=== PATIENT | male | born 1935 | race Caucasian/White ===

== ENCOUNTER → 2016-12-26 | Outpatient (CLI) | payer OTHER, MEDICARE | LOC: BHFA 09:30 | PROVIDERS: ATTEND Internal Medicine Cardiovascular Disease | DX: R94.31 Abnormal electrocardiogram [ECG] [EKG] (principal); R06.02 Shortness of breath ==

== ENCOUNTER 2017-04-13 12:18 | Inpatient (IN) | payer OTHER, MEDICARE ==
--- NOTE | 2017-04-13 12:54 | CPEKG ---
Heart Rate: 61 RR Interval: 984 P-R Interval: 200 QRSD Interval: 140 QT Interval: 436 QTC Interval: 440 P [place]: 74 QRS [place]: -68 T Wave [place]: -35 EKG Severity - ABNORMAL ECG - EKG Impression: SINUS RHYTHM EKG Impression: RBBB AND LAFB Electronically Signed By: Suzie Camacho 13-Apr-2017 15:43:16
[2017-04-13] MEDS ORDERED: ASPIRIN 81 MG CHEWABLE TAB PO ONE (13:02)
--- NOTE | 2017-04-13 13:08 | EDPHY ---
H & P Stated Complaint: High BP, Irregular heart beats, SOB Source: Patient Exam Limitations: No limitations - Personal History Current Tetanus Diphtheria and Acellular Pertussis (TDAP): Yes Tetanus Vaccine Date: < 10 years - Medical/Surgical History Hx Asthma: No Hx Chronic Respiratory Disease: No Hx Diabetes: No Hx Cardiac Disease: No Hx Renal Disease: No Hx Cirrhosis: No Hx Alcoholism: No Hx HIV/AIDS: No Hx Splenectomy or Spleen Trauma: Yes Other PMH: enlarged spleen, hepatitis years ago, spinal stenosis, peripheral neuropathy, hypothyroidism, A-FLUTTER ABLATION - Social History Smoking Status: Former smoker Time Seen by Provider: 04/13/17 13:03 HPI/ROS: HPI: This is an 81-year-old male who presents with Chief Complaint: Palpitations Location: Heart Quality: Palpitations Duration: 1-3 weeks Signs and Symptoms: no chest pain, + nausea, no diaphoresis, + flushing, no cardiac awareness, + elevated blood pressure readings, no abdominal pain Timing: Sudden, intermittent Severity: [id number] Context: Patient complains of intermittent heart palpitations and heart racing 2-3 times per day over the last 1-3 weeks. He has also noted elevated blood pressures; SBP 170/115. No history of hypertension and not take any blood pressure medications. Does take baby aspirin daily. Has a history of atrial fib flutter; followed by Dr. Marshall, and had what appears to be cardiac ablation approximately 2-3 years ago. Had followed with Dr. Thibodeaux approximately 1 year ago and advised to have cardiac nuclear stress test outpatient but never followed up. Patient is a vegetarian; has avoided caffeine and chocolate in the last week or so without improvement. Today was riding his bicycle, noticed his heart rate to be quite elevated. When he returned home, noted a blood pressures and heart rate in the 120s with associated palpitations and now shortness of breath at rest and on exertion. No history of fevers/chills/cough/ wheezing/lower extremity edema. Notified close friend that he needed to come to the hospital for evaluation. Patient states that this is very atypical for him and she is very concerned. Modifying Factors: Aspirin Comment: ROS: see HPI Constitutional: No fever, no chills, no weight loss Eyes: No blurred vision Respiratory: No shortness of breath, no cough Cardiovascular: No chest pain Gastrointestinal: No nausea, no vomiting, no diarrhea Genitourinary: No dysuria Extremities: No myalgias Neurologic: No weakness, no numbness Skin: No rashes Hematologic: No bruising, no bleeding MEDICAL/SURGICAL/SOCIAL HISTORY: Medical history: enlarged spleen, hepatitis years ago, spinal stenosis, peripheral neuropathy, hypothyroidism, A-FLUTTER s/p ABLATION, hx SVT, retinal detachment Social history: vegetarian, retired physicist CONSTITUTIONAL: Elderly adult male, flushed cheeks noted, awake and alert, no obvious distress HEENT: Atraumatic and normocephalic, right eye abnormality noted-chronic; left PERRL, EOMI. Tympanic membranes clear. Oropharynx clear, no exudate and moist pink mucosa. Airway patent. No lymphadenopathy. No meningismus. Cardiovascular: Normal S1/S2, regular rate, irregular rhythm noted at times on telemetry, without murmur rub or gallop. PULMONARY/CHEST: Symmetrical and nontender. Clear to auscultation bilaterally. Good air movement. No accessory muscle usage. ABDOMEN: Soft, nondistended, nontender, no rebound, no guarding, no peritoneal signs, no masses or organomegaly. No CVAT. EXTREMITIES: 2/2 pulses, no deformities, no clubbing, no cyanosis or edema. NEUROLOGICAL: no focal neuro deficits. GCS 15. SKIN: Warm and dry, no erythema. no rash. Good capillary refill. (Ny Montez) Constitutional: Initial Vital Signs Temperature (C) 36.7 C 04/13/17 12:21 Heart Rate 64 04/13/17 12:21 Respiratory Rate 18 04/13/17 12:21 Blood Pressure 159/100 H 04/13/17 12:21 O2 Sat (%) 93 04/13/17 12:21 O2 Delivery Mode Room Air Allergies/Adverse Reactions: cephalexin Allergy (Verified 04/13/17 12:19) mercury Allergy (Uncoded 03/31/10 12:53) Home Medications: Medication Instructions Recorded Ascorbic Acid [Vitamin C 500 mg 1,000 mg PO DAILY 03/23/15 (*)] Herbals/Supplements -Info Only 1 ea PO DAILY 03/23/15 Levothyroxine [Synthroid 50 mcg 50 mcg PO DAILY06 03/23/15 (*)] Vitamin B Complex [B Complex] 1 each PO DAILY 03/23/15 Aspirin EC [Aspirin EC 81 mg (*)] 81 mg PO DAILY 04/13/17 Cholecalciferol Vit D3 [Vitamin D3 2,000 units PO DAILY 04/13/17 (*)] Medical Decision Making - Diagnostics EKG Interpretation: 12 lead EKG: Indication: palpitations Rhythm: Normal sinus rhythm, rate 61 bpm [place]: left CO: borderline RBBB QRS: Normal ST segments: Normal INTERPRETATION: PVCs The 12 lead EKG was interpreted by myself. (Ny Montez) Imaging Results: Imaging Impressions Chest X-Ray 04/13/17 13:02 Impression: 1. Underlying interstitial lung disease suspected with thickened markings around the lung periphery bilaterally. 2. No acute consolidation. ED Course/Re-evaluation: EKG, labs, oral medication, cardiac monitoring ECG shows NSR, no ischemic changes, PVCs, HR 50-90. PERC rule = 1; ddimer ordered 1400: Labs reviewed; grossly unremarkable including troponin, ddimer and proBNP ALVIN risk factors are intermediate. Discussed case with attending who agrees with admission. Reviewed EKG with attending. 1415: ED decision to consult for admission, spoke with Hospital Dr. Ctay Dorsey, who kindly agrees to admit patient and provide further care for cardiac ischemic workup and overnight monitoring for arrhythmias (Ny Montez) Differential Diagnosis: Chest pain including but not limited to myocardial ischemia, pulmonary embolus, chest wall pain, pleural inflammation and pulmonary infectious causes. (Ny Montez) Critical Care Time: I spent a total of 35 minutes of critical care time in obtaining history, performing a physical exam, bedside monitoring of interventions, collecting and interpreting tests and discussion with consultants but not including time spent performing procedures. Dx: Chest pain, palpitations (Ny Montez) Other Provider: The patient was evaluated and managed by the Physician Human [employer] Faculty Member/ Nurse Practitioner. I discussed the patient's presentation and course with the midlevel provider with them and agree with the evaluation. My co-signature indicates that I have reviewed this chart and I agree with the findings and plan of care as documented. I am the secondary supervising physician. (Suzie Cmaacho) - Data Points Laboratory Results: Laboratory Results 04/13/17 12:55 04/13/17 12:55 10/07/17 10/07/17 10/07/17 12:55 12:55 12:55 WBC 7.10 10^3/uL 10^3/uL (3.80-9.50) RBC 5.23 10^6/uL 10^6/uL (4.40-6.38) Hgb 16.9 g/dL g/dL (13.7-17.5) Hct 48.7 % % (40.0-51.0) MCV 93.1 fL fL (81.5-99.8) MCH 32.3 pg pg (27.9-34.1) MCHC 34.7 g/dL g/dL (32.4-36.7) RDW 12.9 % % (11.5-15.2) Plt Count 151 10^3/uL 10^3/uL (150-400) MPV 9.9 fL fL (8.7-11.7) Neut % (Auto) 79.8 % H % (39.3-74.2) Lymph % (Auto) 13.0 % L % (15.0-45.0) [place] % (Auto) 5.6 % % (4.5-13.0) Eos % (Auto) 0.8 % % (0.6-7.6) Baso % (Auto) 0.4 % % (0.3-1.7) Nucleat RBC Rel Count 0.0 % % (0.0-0.2) Absolute Neuts (auto) 5.66 10^3/uL 10^3/uL (1.70-6.50) Absolute Lymphs (auto) 0.92 10^3/uL L 10^3/uL (1.00-3.00) Absolute Monos (auto) 0.40 10^3/uL 10^3/uL (0.30-0.80) Absolute Eos (auto) 0.06 10^3/uL 10^3/uL (0.03-0.40) Absolute Basos (auto) 0.03 10^3/uL 10^3/uL (0.02-0.10) Absolute Nucleated RBC 0.00 10^3/uL 10^3/uL (0-0.01) Immature Gran % 0.4 % % (0.0-1.1) Immature Gran # 0.03 10^3/uL 10^3/uL (0.00-0.10) PT 14.6 SEC SEC (12.0-15.0) INR 1.15 (0.83-1.16) APTT 29.2 SEC SEC (23.0-38.0) D-Dimer 0.27 ug/mLFEU ug/mLFEU (0.00-0.50) Sodium 139 mEq/L mEq/L (134-144) Potassium 4.0 mEq/L mEq/L (3.5-5.2) Chloride 102 mEq/L mEq/L (97-110) Carbon Dioxide 28 mEq/l mEq/l (22-31) Anion Gap 9 mEq/L mEq/L (8-16) BUN 16 mg/dL mg/dL (7-23) Creatinine 0.9 mg/dL mg/dL (0.7-1.3) Estimated GFR > 60 Glucose 89 mg/dL mg/dL (70-100) Calcium 9.7 mg/dL mg/dL (8.5-10.4) Magnesium 2.2 mg/dL mg/dL (1.6-2.3) Total Bilirubin 1.7 mg/dL H mg/dL (0.1-1.4) Conjugated Bilirubin 0.2 mg/dL mg/dL (0.0-0.5) Unconjugated Bilirubin 1.5 mg/dL H mg/dL (0.0-1.1) AST 28 IU/L IU/L (17-59) ALT 38 IU/L IU/L (21-72) Alkaline Phosphatase 50 IU/L IU/L (38-126) Troponin I < 0.012 ng/mL ng/mL (0.000-0.034) NT-Pro-B Natriuret Pep 464 pg/mL H pg/mL (0-450) Total Protein 6.8 g/dL g/dL (6.3-8.2) Albumin 4.2 g/dL g/dL (3.5-5.0) Lipase 53 IU/L IU/L (23-300) TSH 2.150 uIU/mL uIU/mL (0.465-4.680) Medications Given: Discontinued Medications Aspirin (Aspirin) 324 mg PO EDNOW ONE Stop: 04/13/17 13:03 Last Admin: 04/13/17 13:18 Dose: 243 mg Departure - Departure Disposition: [facility] Acute Clinical Impression: Atypical chest pain, Heart palpitations, PVCs (premature ventricular contractions)
[2017-04-13 13:13] LABS: % IMMATURE GRANULYOCYTES 0.4 % (0.0-1.1); ABSOLUTE IMMATURE GRANULOCYTES 0.03 10^3/uL (0.00-0.10); ADD DIFF? NO; ADD MORPH? NO; ADD SCAN? NO; ATYPICAL LYMPHOCYTE FLAG 0 (0-99); FRAGMENT RBC FLAG 0 (0-99); HEMATOCRIT 48.7 % (40.0-51.0); HEMOGLOBIN 16.9 g/dL (13.7-17.5); LEFT SHIFT FLG 0 (0-99); LIPEMIA HEMOLYSIS FLAG 90 (0-99); MEAN CELL HEMOGLOBIN 32.3 pg (27.9-34.1); MEAN CELL HEMOGLOBIN CONCENTR. 34.7 g/dL (32.4-36.7); MEAN CELL VOLUME 93.1 fL (81.5-99.8); MEAN PLATELET VOLUME 9.9 fL (8.7-11.7); PLATELET CLUMPS FLAG 10 (0-99); PLATELET COUNT 151 10^3/uL (150-400); RED BLOOD CELL COUNT 5.23 10^6/uL (4.40-6.38); RED CELL DISTRIBUTION WIDTH 12.9 % (11.5-15.2)
[2017-04-13 13:22] LABS: INR 1.15 (0.83-1.16); PROTIME(PATIENT) 14.6 SEC (12.0-15.0)
[2017-04-13 13:23] LABS: APTT 29.2 SEC (23.0-38.0)
[2017-04-13 13:26] LABS: ALANINE AMINOTRANSFERASE 38 IU/L (21-72); ALBUMIN 4.2 g/dL (3.5-5.0); ALKALINE PHOSPHATASE 50 IU/L (38-126); ANION GAP 9 mEq/L (8-16); ASPARTATE AMINOTRANSFERASE 28 IU/L (17-59); BILIRUBIN,TOTAL 1.7 mg/dL (0.1-1.4); BILIRUBIN-CONJUGATED 0.2 mg/dL (0.0-0.5); BILIRUBIN-UNCONJUGATED 1.5 mg/dL (0.0-1.1); CALCIUM 9.7 mg/dL (8.5-10.4); CARBON DIOXIDE 28 mEq/l (22-31); CHLORIDE 102 mEq/L (97-110); CREATININE 0.9 mg/dL (0.7-1.3); GLOMERULAR FILTRATION RATE > 60; GLUCOSE 89 mg/dL (70-100); MAGNESIUM 2.2 mg/dL (1.6-2.3); SODIUM 139 mEq/L (134-144); TOTAL PROTEIN 6.8 g/dL (6.3-8.2)
[2017-04-13 13:38] LABS: TROPONIN I < 0.012 ng/mL (0.000-0.034)
[2017-04-13] MEDS ORDERED: ACETAMINOPHEN 325 MG TAB PO PRN (15:41)
[2017-04-13] MEDS ORDERED: ONDANSETRON 4 MG/2 ML VIAL IVP PRN (15:41)
--- NOTE | 2017-04-13 16:16 | GHP ---
[f rep st] HISTORY AND PHYSICAL DATE OF ADMISSION: 04/13/2017 CHIEF COMPLAINT: Palpitations, shortness of breath, and hypertension. HISTORY: The patient is an 84-year-old male, who has been noticing increasing palpitations, shortnes s of breath, and hypertension at home. He owns a stethoscope and listens to his heart at home freque ntly himself, and over the last month he has noticed triple beats, missing beats, and intermittent ti mes when his heart rate will go up to 120 and then spontaneously come back to his usual 60s. He does not actually have any true palpitations when he is not listening to his heart with a stethoscope. Y esterday, he developed some chest tightness, which is diffuse across his anterior chest. He has not had this previously. He does feel increased shortness of breath with rest and exertion. He monitors his blood pressure at home and did notice elevated readings with his diastolic blood pressure being greater than 100 today. He is very active at baseline. Lives [facility] in the [facility]. Stopped driving a few years ago and just rides his bike for all errands around [place], including riding up the hill back to his home. He denies any syncope. There is no edema. PAST MEDICAL HISTORY: 1. Atrial flutter and SVT, status post ablation in 2014. 2. Prostate cancer. 3. Peripheral neuropathy. 4. Right eye trauma with decreased vision. 5. Chronic vertigo. PAST SURGICAL HISTORY: Hernia and humerus fracture. MEDICATIONS: Please see computer record for full detailed list. ALLERGIES: Cephalexin. SOCIAL HISTORY: Smoked for a few years as a teenager to look cool. No alcohol. He is a retired eng ineer and physicist. He lives alone. Does not drive; only rides his bike around town. Lives in the [facility]. Has noticed some increased some increased shortness of breath with his bike rides. REVIEW OF SYSTEMS: Complete review of systems obtained. Review of systems is negative regarding con stitutional, HEENT, GI, pulmonary, cardiovascular, , hematology, skin, muscular, endocrine, psych, except for positives and negatives as in HPI. FAMILY HISTORY: Reviewed and noncontributory to current complaint PHYSICAL EXAMINATION: GENERAL: Well-developed, well-nourished male, in no distress. VITAL SIGNS: Temperature 36.7, pulse 63, blood pressure 133/75, saturating 95% on room air. EYES: Normal conjunct ivae. His right eye has a corneal opacification and decreased vision. ENT: Normal ears and nose. Hearing intact. Normal teeth. Oropharynx moist. NECK: Trachea midline. No thyromegaly. CHEST: Normal effort. Lungs clear to auscultation bilaterally. CARDIOVASCULAR: Regular rate and rhythm. No murmur. No extremity edema. ABDOMEN: Soft, nontender. No hepatosplenomegaly. SKIN: Warm, dry , and intact with no rash. MUSCULOSKELETAL: No cyanosis or clubbing. Strength 5/5 upper and lower extremities. NEURO: Cranial nerves intact. Normal sensation to light touch. PSYCH: Alert and ceci ented x3. Normal mood and affect. Normal judgment and insight. Normal memory. LABORATORY DATA: White count 7.1, hematocrit 48.7, platelets 151. Sodium 139, potassium 4.0, chlori de 102, bicarb 28, BUN 16, creatinine 0.9, glucose 89. Total bili 1.7, unconjugated bili 1.5. BNP 4 64. Troponins negative. TSH 2.1. D-dimer is negative. INR is 1.15. EKG viewed by me: My personal interpretation is normal sinus rhythm, right bundle branch block, and some inferior T-wave inversions. Chest x-ray shows possible interstitial lung disease consistent wit h previous chest x-rays. MEDICAL RECORD REVIEW: Last cardiac workup was here in 2014 when he underwent inpatient ablation. ASSESSMENT/PLAN: 1. Chest pain. Will follow serial troponins and EKGs. Will continue daily aspirin. Check a lipid panel in the morning. Will order an exercise stress test with nuclear images if troponins remain neg ative. 2. Palpitations and increased irregularity of heartbeat. On the monitor here, all we are currently seeing our premature atrial contractions and premature ventricular contractions. I will check an ech ocardiogram and continue telemetry monitoring. 3. Hypertension. He had just a couple elevated blood pressure readings at home, but he is normally normotensive. I suspect this may have been stress related, but will continue to monitor for evidence of underlying essential hypertension. 4. Atrial flutter and supraventricular tachycardia, status post ablation. He will be monitored on t elemetry for recurrence. CODE STATUS: Full. ADMISSION STATUS: Will admit to observation. Anticipate discharge home tomorrow if evaluation is ne gative. DVT PROPHYLAXIS: High risk. Will place on subcu Lovenox. /[id number]/MODL
[2017-04-14] MEDS: LEVOTHYROXINE 50 MCG TAB PO SCH (05:30)
--- NOTE | 2017-04-14 05:33 | CPEKG ---
Heart Rate: 53 RR Interval: 1132 P-R Interval: 208 QRSD Interval: 142 QT Interval: 456 QTC Interval: 429 P [place]: 86 QRS [place]: -56 T Wave [place]: -29 EKG Severity - ABNORMAL ECG - EKG Impression: SINUS RHYTHM EKG Impression: RBBB AND LAFB Electronically Signed By: Jag Marcos 14-Apr-2017 09:25:56
[2017-04-14 05:50] LABS: CHOLESTEROL 101 mg/dL (140-220); CHOLESTEROL/HDL RATIO 4.39 RATIO (1.00-4.97); HIGH DENSITY LIPOPROTEIN 23 mg/dL (40-65); LDL/HDL RATIO 2.96 RATIO (1.00-3.64); LOW DENSITY LIPOPROTEIN 68 mg/dL (80-100); NON-HIGH DENSITY LIPOPROTEIN 78 mg/dL (90-129); TRIGLYCERIDE 50 mg/dL (40-150); VERY LOW DENSITY LIPOPROTEINS 10 mg/dL (8-25)
[2017-04-14] MEDS ORDERED: REGADENOSON 0.4 MG/5 ML SYR IVP ONE (09:17)
--- NOTE | 2017-04-14 10:18 | CPR ---
[f rep st] NONINVASIVE CARDIAC PROCEDURE REPORT DATE OF PROCEDURE: 04/13/2017 PROCEDURE: Nuclear stress test. CHIEF COMPLAINT: Hypertension, patient with known SVT. DESCRIPTION OF PROCEDURE: After informed consent, patient received IV adenosine and nuclear tracer w ithout incident. He had stable vital signs and exam pre and post test. Afterward, he was comfortabl e and stable. FINDINGS: Uneventful Lexiscan stress test. Nuclear imaging pending separate report. /[id number]/MODL
--- NOTE | 2017-04-14 12:31 | HOSPPROG ---
Hospitalist Progress Note Assessment/Plan: # chest pain/abn stress images - rest images tomorrow - cards consulting - cont tele # palpitations/PVCs/PACs - cont tele; # htn reported at home - BP mostly ok here - follow # a-flutter s/p ablation 2014 - tele Subjective: upset at not being able to have full nuc stress today Objective: Vital Signs Temp Pulse Resp BP Pulse Ox 36.4 C 61 16 126/70 H 92 04/14/17 11:27 04/14/17 11:27 04/14/17 11:27 04/14/17 11:27 04/14/17 11:27 PT 14.6 SEC (12.0-15.0) 04/13/17 12:55 INR 1.15 (0.83-1.16) 04/13/17 12:55 chart reviewed discussed with Dr Jose wright reviewed - Physical Exam Constitutional: no apparent distress Cardiovascular: regular rate and rhythym, no murmur, rub, or gallop Respiratory: no respiratory distress, no rales or rhonchi, clear to auscultation Gastrointestinal: normoactive bowel sounds, soft, non-tender abdomen, no palpable masses ICD10 Worksheet Patient Problems: Problems Problem Status Onset Atrial fibrillation Acute Atypical chest pain Acute Heart palpitations Acute PVCs (premature ventricular contractions) Acute
--- NOTE | 2017-04-14 12:50 | PDMN ---
Medical Necessity Medical necessity: C/M review: est. > 2 MN LOS for eval and TX of acute and persistent chest pain, palpitations, PVCs, PACs, 04/14/2017 abnormal stress myocardial perfusion scan requiring planned 04/15/2017 myocardial perfusion scan rest images, ongoing cardiac monitoring, comorbid, hypertension, hx atrial flutter S/P ablation per 04/15/2017 Hospitalist progress note.
--- NOTE | 2017-04-14 13:55 | ECHO ---
[email or web address] [address] [address] Main: [phone] Fax: [email or web address] Echocardiogram Name: Esthela BISWAS MR#: [id number] Study Date: 04/14/2017 Study Time: 11:47 AM Date of : 1935 Age: 81 year(s) Height: 185.4 cm (73 in.) Weight: 77.11 kg (170 lb.) BSA: 2.01 m2 Gender: Male Examination: Echo Indication: Image Quality: Contrast: Requested by: Caty Dorsey BP: 126 mmHg/70 mmHg Heart Rate: Rhythm: Normal sinus rhythm with ectopy Indication: Procedure Staff Furniture Crater: Jason Campbell Reading Physician: Edvin Garcia Requesting Provider: Conclusions: Normal size left ventricle. No regional wall motion abnormality. The right atrium is moderately to severely dilated. The tricuspid valve is normal in appearance and function. The RVSP is 36 mmHg. There is no previous echocardiogram for comparison. Measurements: Chambers Valvular Assessment AV/MV Valvular Assessment TV/PV Normal Normal Normal Name Value Range Name Value Range Name Value Range Ao Etelvina (MM): 3.8 cm (2.2 cm-3.7 LVOT Vmax: 1.02 m/s (0.7 m/s-1.1 TR Vmax: 2.77 mm/s ( - ) cm) m/s) TR PGmax: 31 mmHg ( - ) IVSd (2D): 1.1 cm (0.6 cm-1.1 AR (PHT): 561 ms ( - ) syst. PAP: 36 mmHg ( - ) cm) MV E Vmax: 0.57 m/s ( - ) PV Vmax: 0.94 m/s (0.6 m/s-0.9 LVDd (2D): 4.6 cm (4.2 cm-5.9 MV A Vmax: 0.66 m/s ( - ) m/s) cm) MV E/A: 0.86 ( - ) PV PGmax: 4 mmHg ( - ) LVDs (2D): 3.1 cm (2.1 cm-4 cm) LVPWd (2D): 1.1 cm (0.6 cm-1 cm) LVEF (2D): 62 (>=54 %) Continued Measurements: Chambers Valvular Assessment AV/MV Valvular Assessment TV/PV Name Value Name Value Name Value LADs Lon.9 cm MV E/E' Septal: 10.80 CVP (est.): 5 mmHg LA Area: 16.6 cm2 MV E/E' Lateral: 11.00 LA Volume: 48 ml AR Vmax: 3.19 cm/s Patient: Esthela BISWAS Study Date: 04/14/2017 Page 1 of 2 11:47 AM LA Volume Index: 23.9 ml/m2 Findings: Left Ventricle: Normal size left ventricle. Normal global systolic LV function. EF is 62 %. No regional wall motion abnormality. Right Ventricle: Normal size right ventricle. Normal RV function. Left Atrium: The left atrium is mildly dilated. Right Atrium: The right atrium is moderately to severely dilated. Mitral Valve: The mitral valve is normal in appearance and function. Mild mitral valve regurgitation is present. Aortic Valve: The aortic valve is normal in appearance. Trivial to mild aortic valve regurgitation. Tricuspid Valve: The tricuspid valve is normal in appearance and function. The RVSP is 36 mmHg. Pulmonic Valve: The pulmonic valve is normal in appearance and function. Mild pulmonic valve regurgitation is noted. Aorta: The aorta is normal. Pericardium: No pericardial effusion. (No Signature Object) Patient: Esthela BISWAS Study Date: 04/14/2017 Page 2 of 2 11:47 AM [id number]
--- NOTE | 2017-04-14 14:45 | ASMTCMCOM ---
CM Note CM Note Notes: Reviewed chart re: d/c poc, pt's progress. Pt admitted for CP, palpitations, SOB, HTN w/ hx of aflutter w/ ablation, prostate ca, neuropathy, R eye trauma w/ decr vision and chronic vertigo. Pt to have resting images 04/15/17 for Nuc Stress Test. Pt lives alone in the [facility]; he is a retired aeronautical project engineer/physicist. Pt stopped driving a few yrs ago and bikes to get around town. Anticipate pt will likely d/c home independently when stable. CM will cont to follow. Date Signed: 04/14/2017 02:44 PM Electronically Signed By:Sandra Foster RN
[2017-04-14] MEDS: ASPIRIN EC 81 MG TAB PO SCH (22:45)
[2017-04-14] MEDS: ENOXAPARIN 40 MG/0.4 ML SYR SC SCH (23:30)
[2017-04-15] MEDS: ASPIRIN EC 81 MG TAB PO SCH (08:31)
[2017-04-15] MEDS: LEVOTHYROXINE 50 MCG TAB PO SCH (08:31)
[2017-04-15 11:40] VITALS: PULSE 81; TEMP 98.7
[2017-04-15 11:45] VITALS: BP 107/68; RESP 16; O2SAT 94
[2017-04-15] MEDS: ENOXAPARIN 40 MG/0.4 ML SYR SC SCH (11:49)
--- NOTE | 2017-04-15 13:53 | PDCARCONS ---
Cardiology Consult Reason for Consult: chest pressure and arrythmia Chief Complaint: Chest pressure and increased palpitations Requesting Physician: Dr. Bustos History of Present Illness: 81-year-old male no history of coronary disease, history of palpitations admitted to the hospital with increasing palpitations and chest pressure. He ruled out for myocardial infarction by serial enzymes. He had a nuclear stress test revealing a ? mild lateral wall defect. This is in the setting of known right bundle branch block and left anterior fascicular block. He has been asymptomatic through the weekend. I am asked to comment on further management. Patient does have a history of atrial flutter status post ablation. Patient has no history of coronary artery disease. He has a recent coronary calcium score of 0. He has no significant risk. He has no history of diagnosed tachy arrhythmias, however, he is concerned about atrial fibrillation. He is extraordinarily active hiking without limitations. He enjoys excellent quality of life. Today he reports no cardiovascular symptoms. Cardiac review of systems is negative for chest pain, shortness of breath, PND , orthopnea, palpitations, syncope, near syncope, edema. History Information - Allergies/Home Medication List Allergies/Adverse Reactions: cephalexin Allergy (Verified 04/13/17 12:19) mercury Allergy (Uncoded 03/31/10 12:53) Home Medications: Ascorbic Acid [Vitamin C 500 mg (*)] 1,000 mg PO DAILY 03/23/15 [Last Taken ] Herbals/Supplements -Info Only 1 ea PO DAILY 03/23/15 [Last Taken 03/31/15] Levothyroxine [Synthroid 50 mcg (*)] 50 mcg PO DAILY06 03/23/15 [Last Taken 01/21] Vitamin B Complex [B Complex] 1 each PO DAILY 03/23/15 [Last Taken 03/31/15] Aspirin EC [Aspirin EC 81 mg (*)] 81 mg PO DAILY 04/13/17 [Last Taken 04/13/17] Cholecalciferol Vit D3 [Vitamin D3 (*)] 2,000 units PO DAILY 04/13/17 [Last Taken Unknown] I have personally reviewed and updated: family history, medical history, social history, surgical history Past Medical History: - Past Medical History Additional medical history: Atrial flutter s/p ablation - Family History Positive for: non-pertinent - Social History Smoking Status: Former smoker Physical Exam Physical Exam: Temp Pulse Resp BP Pulse Ox 37.1 C 81 16 107/68 94 04/15/17 11:38 04/15/17 11:43 04/15/17 11:43 04/15/17 11:43 04/15/17 11:43 Constitutional: no apparent distress, appears nourished Eyes: other (Cataract of the right eye) Ears, Nose, Mouth, Throat: moist mucous membranes Cardiovascular: regular rate and rhythym, no murmur, rub, or gallop Peripheral Pulses: 1+: carotid (R), carotid (L) Respiratory: no respiratory distress, no rales or rhonchi, clear to auscultation Gastrointestinal: normoactive bowel sounds, soft, non-tender abdomen, no palpable masses Genitourinary: no bladder fullness Skin: warm, No rash Musculoskeletal: full muscle strength, no muscle tenderness Neurologic: AAOx3, No facial droop Psychiatric: interacting appropriately Lymph, Heme, Immunologic: no cervical LAD Lab and Imaging 04/13/17 12:55 04/13/17 12:55 WBC 7.10 10^3/uL (3.80-9.50) 04/13/17 12:55 RBC 5.23 10^6/uL (4.40-6.38) 04/13/17 12:55 Hgb 16.9 g/dL (13.7-17.5) 04/13/17 12:55 Hct 48.7 % (40.0-51.0) 04/13/17 12:55 MCV 93.1 fL (81.5-99.8) 04/13/17 12:55 MCH 32.3 pg (27.9-34.1) 04/13/17 12:55 MCHC 34.7 g/dL (32.4-36.7) 04/13/17 12:55 RDW 12.9 % (11.5-15.2) 04/13/17 12:55 Plt Count 151 10^3/uL (150-400) 04/13/17 12:55 MPV 9.9 fL (8.7-11.7) 04/13/17 12:55 Neut % (Auto) 79.8 % (39.3-74.2) H 04/13/17 12:55 Lymph % (Auto) 13.0 % (15.0-45.0) L 04/13/17 12:55 Benzie % (Auto) 5.6 % (4.5-13.0) 04/13/17 12:55 Eos % (Auto) 0.8 % (0.6-7.6) 04/13/17 12:55 Baso % (Auto) 0.4 % (0.3-1.7) 04/13/17 12:55 Nucleat RBC Rel Count 0.0 % (0.0-0.2) 04/13/17 12:55 Absolute Neuts (auto) 5.66 10^3/uL (1.70-6.50) 04/13/17 12:55 Absolute Lymphs (auto) 0.92 10^3/uL (1.00-3.00) L 04/13/17 12:55 Absolute Monos (auto) 0.40 10^3/uL (0.30-0.80) 04/13/17 12:55 Absolute Eos (auto) 0.06 10^3/uL (0.03-0.40) 04/13/17 12:55 Absolute Basos (auto) 0.03 10^3/uL (0.02-0.10) 04/13/17 12:55 Absolute Nucleated RBC 0.00 10^3/uL (0-0.01) 04/13/17 12:55 Immature Gran % 0.4 % (0.0-1.1) 04/13/17 12:55 Immature Gran # 0.03 10^3/uL (0.00-0.10) 04/13/17 12:55 PT 14.6 SEC (12.0-15.0) 04/13/17 12:55 INR 1.15 (0.83-1.16) 04/13/17 12:55 APTT 29.2 SEC (23.0-38.0) 04/13/17 12:55 D-Dimer 0.27 ug/mLFEU (0.00-0.50) 04/13/17 12:55 Sodium 139 mEq/L (134-144) 04/13/17 12:55 Potassium 4.0 mEq/L (3.5-5.2) 04/13/17 12:55 Chloride 102 mEq/L (97-110) 04/13/17 12:55 Carbon Dioxide 28 mEq/l (22-31) 04/13/17 12:55 Anion Gap 9 mEq/L (8-16) 04/13/17 12:55 BUN 16 mg/dL (7-23) 04/13/17 12:55 Creatinine 0.9 mg/dL (0.7-1.3) 04/13/17 12:55 Estimated GFR > 60 04/13/17 12:55 Glucose 89 mg/dL (70-100) 04/13/17 12:55 Calcium 9.7 mg/dL (8.5-10.4) 04/13/17 12:55 Magnesium 2.2 mg/dL (1.6-2.3) 04/13/17 12:55 Total Bilirubin 1.7 mg/dL (0.1-1.4) H 04/13/17 12:55 Conjugated Bilirubin 0.2 mg/dL (0.0-0.5) 04/13/17 12:55 Unconjugated Bilirubin 1.5 mg/dL (0.0-1.1) H 04/13/17 12:55 AST 28 IU/L (17-59) 04/13/17 12:55 ALT 38 IU/L (21-72) 04/13/17 12:55 Alkaline Phosphatase 50 IU/L (38-126) 04/13/17 12:55 Troponin I < 0.012 ng/mL (0.000-0.034) 04/13/17 23:36 NT-Pro-B Natriuret Pep 464 pg/mL (0-450) H 04/13/17 12:55 Total Protein 6.8 g/dL (6.3-8.2) 04/13/17 12:55 Albumin 4.2 g/dL (3.5-5.0) 04/13/17 12:55 Triglycerides 50 mg/dL (40-150) 04/14/17 03:58 Cholesterol 101 mg/dL (140-220) L 04/14/17 03:58 Cholesterol Risk Factr 1.0 (0.2-1.0) 04/14/17 03:58 LDL Cholesterol, Calc 68 mg/dL (80-100) L 04/14/17 03:58 LDL Risk Factor 1.0 (0.2-1.0) 04/14/17 03:58 VLDL Cholesterol 10 mg/dL (8-25) 04/14/17 03:58 Non-HDL Cholesterol 78 mg/dL (90-129) L 04/14/17 03:58 HDL Cholesterol 23 mg/dL (40-65) L 04/14/17 03:58 LDL/HDL Ratio 2.96 RATIO (1.00-3.64) 04/14/17 03:58 Cholesterol/HDL Ratio 4.39 RATIO (1.00-4.97) 04/14/17 03:58 Lipase 53 IU/L (23-300) 04/13/17 12:55 TSH 2.150 uIU/mL (0.465-4.680) 04/13/17 12:55 Laboratory Tests 04/13/17 04/13/17 04/13/17 12:55 17:40 23:36 Troponin I < 0.012 < 0.012 < 0.012 NT-Pro-B Natriuret Pep 464 H LDL Cholesterol, Calc 04/14/17 03:58 Troponin I NT-Pro-B Natriuret Pep LDL Cholesterol, Calc 68 L EKG additional interpertation: ECG reveals right bundle branch block, left anterior fascicular block. Echocardiogram: Echocardiogram reveals normal LV systolic function without regional wall motion abnormalities, there were no valvular abnormalities. Nuclear stress test revealed normal perfusion with normal LV systolic function. A/P Assessment: Assessment: 81-year-old male known atrial dysrhythmia status post a flutter ablation presenting with palpitations likely PACs associated with atypical chest pain. Patient has ruled out for myocardial infarction by serial enzymes. He has had a negative nuclear stress test. He had normal echocardiogram. Symptoms have resolved. At this point recommendations are for continued medical therapy with antiplatelet agents, modification of risk factors with clinical follow-up. He is at very low risk for occult coronary artery disease based on a coronary calcium score of 0 at his age. Plan: Agree with discharge. Follow up Dr. Anibal Thibodeaux primary director of procurement for continued care. Past Medical History PMH: - Personal History Current Tetanus Diphtheria and Acellular Pertussis (TDAP): Yes Tetanus Vaccine Date: < 10 years - Medical/Surgical History Hx Asthma: No Hx Chronic Respiratory Disease: No Hx Cardiac Disease: No Hx Diabetes: No Hx Renal Disease: No Hx Alcoholism: No Hx Cirrhosis: No Hx HIV/AIDS: No Hx Splenectomy or Spleen Trauma: Yes Other PMH: enlarged spleen, hepatitis years ago, spinal stenosis, peripheral neuropathy, hypothyroidism, A-FLUTTER ABLATION - Social History Smoking Status: Former smoker Additional Social History: Review of Systems Review of Systems: - Review of Systems Constitutional: denies: chills, fever EENTM: no symptoms reported Respiratory: no symptoms reported Cardiac: no symptoms reported Gastrointestinal/Abdominal: no symptoms reported Genitourinary: no symptoms Musculoskelatal: no symptoms Skin: no symptoms Neurological: no symptoms Hematologic/Lymphatic: no symptoms reported Immunologic/allergic: no symptoms reported
--- NOTE | 2017-04-15 14:09 | GDS ---
[f rep st] DISCHARGE SUMMARY ALL DIAGNOSES: 1. Chest pain. 2. Palpitations with premature ventricular contractions and premature atrial contractions. 3. Hypertension. 4. History of atrial flutter, status post ablation. HOSPITAL COURSE: An 81-year-old man with history of atrial flutter, presented with palpitations and chest pain. This has been going on for about 1 month. His EKG showed right bundle and left anterior fascicular blocks with 1 PVC, nothing acutely ischemic. His echocardiogram showed a dilated RA with a normal left ventricle. His troponins were negative. He underwent a nuclear stress test. The ini tial report was that his stress images were abnormal; thus, he was kept overnight for rest images. F inal report on the nuclear stress is a normal nuclear stress. He is discharged in stable condition w ith no medication changes. He will follow up with Dr. Thibodeaux in 2-4 weeks. He was seen by Cardiolog y, who agrees with this. BILLING: I spent more than 30 minutes on the day of discharge coordinating care. /[id number]/MODL
--- NOTE | 2017-04-15 14:28 | ASDISCHSUM ---
Discharge Information Plan Status:Home with No Needs Medically Cleared to Leave:04/15/2017 Discharge Date:04/15/2017 01:45 PM CM D/C Disposition:Home, Routine, Self-Care ADT D/C Disposition:Home, Routine, Self-Care Projected Discharge Date:04/15/2017 01:45 PM Transportation at D/C:Family Discharge Delay Reason: Follow-Up Date:04/15/2017 01:45 PM Discharge Slot: Final Diagnosis:CP, palpitations, shortness of breath, HTN Placement Information Patient Contact Information Contact Name:FLORES Relationship:Friend Address: Work Phone: [place]:PATSYHT[place] Pio Phone: [facility]/Zip Code:[place] [address] Email: Financial Information Financial Class: Primary Plan Desc:MEDICARE INPATIENT Primary Plan Number:[id number] Secondary Plan Desc:[employer]/M[employer] SUPPLEMENT Secondary Plan Number:[id number] Assessment Information [facility] CM Progress Note CM Note CM Note Notes: Reviewed chart re: d/c poc, pt's progress. Pt admitted for CP, palpitations, SOB, HTN w/ hx of aflutter w/ ablation, prostate ca, neuropathy, R eye trauma w/ decr vision and chronic vertigo. Pt to have resting images 04/15/17 for Nuc Stress Test. Pt lives alone in the [facility]; he is a retired electronics engineering manager/physicist. Pt stopped driving a few yrs ago and bikes to get around town. Anticipate pt will likely d/c home independently when stable. CM will cont to follow. Date Signed: 04/14/2017 02:44 PM Electronically Signed By:Sandra Foster RN Intervention Information Intervention Type:*Incorrect Registration Date of Service:04/13/2017 04:23 PM Patient Type:Observation Staff Member:CHRISTOFER Marie Shelly Hours:0.25 Discipline: Severity:1 (0-1 Hours) Comment:Registered inpatient, admit order writ ten observation.
== END 2017-04-15 13:45 | disposition home or self-care (01) | DRG 313 ==
LOC: INTOOBSV 14:36 → F2W 16:15 → OBSVTOIN 04-14 12:26
PROVIDERS: ADMIT Internal Medicine; ATTEND Student in an Organized Health Care Education/Training Program
DX: R07.9 Chest pain, unspecified (principal); R00.2 Palpitations; I49.3 Ventricular premature depolarization; I49.1 Atrial premature depolarization; I10 Essential (primary) hypertension; E03.9 Hypothyroidism, unspecified; R42 Dizziness and giddiness; Z87.891 Personal history of nicotine dependence; Z85.46 Personal history of malignant neoplasm of prostate
CPT/HCPCS: A9500; G0378; J2785

== ENCOUNTER → 2018-07-17 | Outpatient (CLI) | payer OTHER, MEDICARE | LOC: BHFA 11:00 | PROVIDERS: ATTEND Internal Medicine Cardiovascular Disease | DX: I48.91 Unspecified atrial fibrillation (principal); I48.92 Unspecified atrial flutter ==